=== PATIENT | male | born 1940 | race Caucasian/White ===

== ENCOUNTER 2017-03-10 12:30 | Emergency (ER) | payer MEDICARE, OTHER ==
--- NOTE | 2017-03-10 12:45 | EDM.PDOC ---
ED HPI GENERAL MEDICAL PROBLEM - General Chief Complaint: Gastrointestinal Problem Stated Complaint: GI BLEED Time Seen by Provider: 03/10/17 12:30 Source of Information: Reports: Patient, Family ([facility] Van) History Limitations: Reports: Physical Impairment - History of Present Illness INITIAL COMMENTS - FREE TEXT/NARRATIVE: 77 y.o.w.m came from a assisted with the van to the ed due to vomiting several times today. His last vomit was reddish.No diarrhea, no dizziness or lightheadedness, no pain, denies any other acute medical issues. BP 121/73 pulse 86 Pulse ox 95% on RA. Temp 36.4 Onset: Today Onset Date: 03/10/17 Onset Time: 09:00 Duration: Hour(s):, Waxing/Waning Location: Reports: Abdomen Quality: Reports: Ache Severity: Mild Improves with: Reports: Other (not eating) Worsens with: Reports: Eating Context: Reports: Other (vomitted 8 times today. The last vomit had blood in the vomited materia/.) Associated Symptoms: Reports: Nausea/Vomiting - Related Data Allergies Allergy/AdvReac Type Severity Reaction Status Date / Time No Known Allergies Allergy Verified 03/10/17 12:48 Home Meds: Home Meds Bisacodyl 10 mg RECTAL DAILY PRN 03/10/17 [History] Levothyroxine [Synthroid] 50 mcg PO DAILY 03/10/17 [History] Magnesium Hydroxide [Milk of Magnesia] 30 ml PO DAILY PRN 03/10/17 [History] Ondansetron [Zofran ODT] 8 mg PO Q6H PRN #20 tab.dis 03/10/17 [Rx] Pantoprazole Sodium [Protonix] 40 mg PO DAILY #20 tablet.dr 03/10/17 [Rx] Sertraline HCl [Sertraline HCl] 150 mg PO DAILY 03/10/17 [History] Tamsulosin HCl [Tamsulosin HCl] 0.4 mg PO BEDTIME 03/10/17 [History] Triamcinolone Acetonide [Triamcinolone Acetonide 0.1% Crm] 1 applic TOP BID PRN 03/10/17 [History] atorvaSTATin [Lipitor] 10 mg PO BEDTIME 03/10/17 [History] medroxyPROGESTERone Acetate [Depo-Provera] 150 mg IM ASDIRECTED 03/10/17 [ History] ED ROS GENERAL - Review of Systems Review Of Systems: See Below Constitutional: Reports: No Symptoms HEENT: Reports: No Symptoms Respiratory: Reports: No Symptoms Cardiovascular: Reports: No Symptoms Endocrine: Reports: No Symptoms GI/Abdominal: Reports: Nausea, Vomiting : Reports: No Symptoms Musculoskeletal: Reports: No Symptoms Skin: Reports: No Symptoms Neurological: Reports: No Symptoms Psychiatric: Reports: No Symptoms Hematologic/Lymphatic: Reports: No Symptoms Immunologic: Reports: No Symptoms ED EXAM, GI/ABD - Physical Exam Exam: See Below Exam Limited By: Physical Impairment General Appearance: Alert, WD/WN, No Apparent Distress, Obese Eyes: Bilateral: Normal Appearance Ears: Normal External Exam Nose: Normal Inspection Throat/Mouth: Normal Inspection, No Airway Compromise Head: Atraumatic, Normocephalic Neck: Normal Inspection, Supple, Non-Tender Respiratory/Chest: No Respiratory Distress, Lungs Clear, Normal Breath Sounds ( poor insp effort) Cardiovascular: Normal Peripheral Pulses GI/Abdominal Exam: Normal Bowel Sounds, Soft, Non-Tender, No Organomegaly (Male) Exam: Deferred Rectal (Males) Exam: Deferred Back Exam: Normal Inspection, Full Range of Motion Extremities: Normal Inspection, Normal Range of Motion, Non-Tender, No Pedal Edema Neurological: Alert, Oriented, CN II-XII Intact, Normal Cognition, Other (pt is ambulating without help) Psychiatric: Normal Affect, Normal Mood Skin Exam: Warm, Dry, Intact, Normal Color, No Rash Lymphatic: No Adenopathy Course - Vital Signs Text/Narrative:: 77 y.o.w.m came from a assisted with the van to the ed due to vomiting several times today. His last vomit was reddish.No diarrhea, no dizziness or lightheadedness, no pain, denies any other acute medical issues. BP 121/73 pulse 86 Pulse ox 95% on RA. Temp 36.4 PE: Morbid obese with N/V [employer] Labs: CBC. BMP nl INR 1.15 Impression: Gastritis/ poss MW gastritis, Tx: Zofran, Protonix Reexam: Improved, no N/V in this ED Plan: with instructions Last Recorded V/S: Last Vital Signs Temp 37.1 C 03/10/17 13:45 Pulse 82 03/10/17 13:45 Resp 18 03/10/17 13:45 BP 123/73 03/10/17 13:45 Pulse Ox 93 L 03/10/17 13:45 - Orders/Labs/Meds Orders: Active Orders 24 hr Category Date Time Status Peripheral IV Insertion Adult [OM.PC] Routine Oth 03/10/17 12:46 Ordered Labs: Laboratory Tests 03/10/17 03/10/17 03/10/17 Range/Units 13:00 13:00 13:00 WBC 11.2 (4.5-12.0) X10-3/uL RBC 4.71 (4.30-5.75) x10(6)uL Hgb 14.6 (11.5-15.5) g/dL Hct 44.4 (30.0-51.3) % MCV 94.3 (80-96) fL MCH 31.0 (27.7-33.6) pg MCHC 32.9 (32.2-35.4) g/dL RDW 13.9 (11.5-15.5) % Plt Count 281 (125-369) X10(3)uL MPV 7.8 (7.4-10.4) fL Add Manual Diff Yes Neutrophils % (Manual) 94 H (46-82) % Lymphocytes % (Manual) 3 L (13-37) % Monocytes % (Manual) 3 L (4-12) % PT 11.4 H (8.7-11.1) INR 1.13 (0.89-1.13) Sodium 141 (135-145) mmol/L Potassium 3.6 (3.5-5.3) mmol/L Chloride 103 (100-110) mmol/L Carbon Dioxide 30 (21-32) mmol/L BUN 13 (7-18) mg/dL Creatinine 0.8 (0.70-1.30) mg/dL Est Cr Clr Drug Dosing 86.22 mL/min Estimated GFR (MDRD) > 60 (>60) BUN/Creatinine Ratio 16.3 (9-20) Glucose 127 H (80-116) mg/dL Calcium 8.5 L (8.6-10.2) mg/dL Meds: Medications Discontinued Medications Generic Name Dose Route Start Last Admin Trade Name Freq PRN Reason Stop Dose Admin Ondansetron HCl 8 mg 03/10/17 12:47 03/10/17 13:07 Zofran IVPUSH 03/10/17 12:48 8 mg ONETIME ONE Administration Pantoprazole Sodium 80 mg 03/10/17 12:46 03/10/17 13:13 Protonix Iv IVPUSH 03/10/17 12:47 80 mg .BOLUS ONE Administration Sodium Chloride 10 ml 03/10/17 12:46 03/10/17 13:15 Saline Flush FLUSH 10 ml ASDIRECTED PRN Administration Keep Vein Open Departure - Departure Time of Disposition: 13:41 Disposition: Home, Self-Care 01 Condition: Good Clinical Impression: Gastritis Qualifiers: Gastritis type: unspecified gastritis Chronicity: acute Gastritis bleeding: with bleeding Qualified Code(s): K29.01 - Acute gastritis with bleeding - Discharge Information Prescriptions: Ondansetron [Zofran ODT] 8 mg PO Q6H PRN #20 tab.dis PRN Reason: Nausea Pantoprazole Sodium [Protonix] 40 mg PO DAILY #20 tablet.dr Referrals: Arley Estevez MD [Primary Care Provider] - Forms: ED Department Discharge Additional Instructions: Please take the meds as recommended, please f/u, please come back if your symptoms get worse acutely - My Orders Last 24 Hours: My Active Orders 03/10/17 12:46 Peripheral IV Insertion Adult [OM.PC] Routine - Assessment/Plan Last 24 Hours: My Active Orders 03/10/17 12:46 Peripheral IV Insertion Adult [OM.PC] Routine
[2017-03-10] MEDS ORDERED: Pantoprazole 40 MG Vial IVPUSH ONE (12:46)
[2017-03-10] MEDS ORDERED: Ondansetron 4 MG/2 ML SDV IVPUSH ONE (12:47)
[2017-03-10] MEDS: Sodium Chloride 0.9% 10 ML Syringe FLUSH PRN ×3 (13:05→13:15)
== END 2017-03-10 14:00 | disposition home or self-care (01) ==
LOC: FB.ED 12:30
DX: K29.01 Acute gastritis with bleeding (principal); Z79.899 Other long term (current) drug therapy
CPT/HCPCS: 36415; 80048; 85025; 85610; 96374; 96375; 99285; C9113; J2405; J7050; 99284

== ENCOUNTER 2019-05-10 22:27 | Inpatient (IN) | payer MEDICARE, MEDICAID ==
[2019-05-10] MEDS ORDERED: Albuterol/Ipratropium 3.0-0.5 MG/3 ML Neb Soln NEB ONE (22:37)
[2019-05-11] MEDS ORDERED: methylPREDNISolone Sodium Succinate 125 MG/2 ML SDV IVPUSH ONE (00:07)
[2019-05-11] MEDS ORDERED: Levofloxacin/Dextrose 5%-Water 750 MG in Premix Bag 1 BAG IV ONE ×2 (00:07→01:00)
--- NOTE | 2019-05-11 00:13 | EDM.PDOC ---
ED HPI GENERAL MEDICAL PROBLEM - General Chief Complaint: Respiratory Problem Time Seen by Provider: 05/10/19 23:00 - History of Present Illness INITIAL COMMENTS - FREE TEXT/NARRATIVE: c/o sob pt with dx COPD, dementia, DNR/DNI lives in [place], inc'd sob tonight with fever, RR 32% and PO 89% on 2 liters, normally not on O2, not on nebs RR [facility] - Related Data Allergies Allergy/AdvReac Type Severity Reaction Status Date / Time No Known Allergies Allergy Verified 05/10/19 23:41 Home Meds: Home Meds Bisacodyl 10 mg RECTAL DAILY PRN 03/10/17 [History] Levothyroxine [Synthroid] 50 mcg PO DAILY 03/10/17 [History] Magnesium Hydroxide [Milk of Magnesia] 30 ml PO DAILY PRN 03/10/17 [History] Ondansetron [Zofran ODT] 8 mg PO Q6H PRN #20 tab.dis 03/10/17 [Rx] Pantoprazole Sodium [Protonix] 40 mg PO DAILY #20 tablet.dr 03/10/17 [Rx] Sertraline HCl 150 mg PO DAILY 03/10/17 [History] Tamsulosin HCl 0.4 mg PO BEDTIME 03/10/17 [History] Triamcinolone Acetonide [Triamcinolone Acetonide 0.1% Crm] 1 applic TOP BID PRN 03/10/17 [History] atorvaSTATin [Lipitor] 10 mg PO BEDTIME 03/10/17 [History] medroxyPROGESTERone Acetate [Depo-Provera] 150 mg IM ASDIRECTED 03/10/17 [ History] Past Medical History Cardiovascular History: Reports: High Cholesterol Respiratory History: Reports: COPD Neurological History: Reports: Alzheimers Disease Psychiatric History: Reports: Bipolar, Dementia, Depression, Schizophrenia, Other (See Below) Other Psychiatric History: impulse disorder Endocrine/Metabolic History: Reports: Hypothyroidism, Obesity/BMI 30+ - Infectious Disease History Infectious Disease History: Reports: Chicken Pox Social & Family History - Family History Family Medical History: Noncontributory - Tobacco Use Smoking Status *Q: Never Smoker Second Hand Smoke Exposure: No - Caffeine Use Caffeine Use: Reports: Coffee - Recreational Drug Use Recreational Drug Use: No ED ROS GENERAL - Review of Systems Review Of Systems: See Below Constitutional: Reports: Fever HEENT: Reports: No Symptoms Respiratory: Reports: Shortness of Breath Cardiovascular: Reports: No Symptoms Endocrine: Reports: No Symptoms GI/Abdominal: Reports: No Symptoms : Reports: No Symptoms Musculoskeletal: Reports: No Symptoms Skin: Reports: No Symptoms Neurological: Reports: No Symptoms Psychiatric: Reports: No Symptoms Hematologic/Lymphatic: Reports: No Symptoms Immunologic: Reports: No Symptoms ED EXAM, GENERAL - Physical Exam Exam: See Below Exam Limited By: Other (dementia, alert, pleasant, very poor memory however, no dyspnea, no purse lips, no retractions) General Appearance: Alert Nose: Normal Inspection, Normal Mucosa, No Blood Throat/Mouth: Normal Inspection, Normal Lips, Normal Oropharynx, Normal Voice, No Airway Compromise Head: Atraumatic, Normocephalic Neck: Normal Inspection, Supple, Non-Tender, Full Range of Motion. No: Lymphadenopathy (R), Lymphadenopathy (L) Respiratory/Chest: Other (moderate exp wheeze b/l, fair to good AE, sitting comfortably in w/c, nontoxic, good eye contact, normal speech, talks 8-10 word sentences) Cardiovascular: Regular Rate, Rhythm, No Edema, Other (2/6 DARREL at LSB) GI/Abdominal: Soft, Non-Tender, No Distention, No Mass Back Exam: Normal Inspection, Full Range of Motion, NT Extremities: Normal Inspection, Normal Range of Motion, Non-Tender, No Pedal Edema Neurological: Alert, Oriented, CN II-XII Intact, No Motor/Sensory Deficits Psychiatric: Normal Affect, Normal Mood Skin Exam: Warm, Dry, Intact, Normal Color, No Rash Lymphatic: No Adenopathy Course - Vital Signs Last Recorded V/S: Last Vital Signs Temp 37.1 C 05/10/19 22:34 Pulse 111 H 05/10/19 22:34 Resp 18 05/10/19 22:34 BP 144/86 H 05/10/19 22:34 Pulse Ox 94 L 05/10/19 22:34 - Orders/Labs/Meds Orders: Active Orders 24 hr Category Date Time Status Admission Status [Patient Status] [ADT] Routine ADT 05/11/19 00:05 Ordered Cardiac Monitoring [RC] .As Directed Care 05/11/19 00:05 Ordered EKG Documentation Completion [RC] ASDIRECTED Care 05/10/19 22:37 Ordered RT Aerosol Therapy [RC] ASDIRECTED Care 05/10/19 22:38 Ordered Chest 2V [CR] Stat Exams 05/10/19 22:37 Ordered CULTURE BLOOD [BC] Urgent Lab 05/10/19 22:37 Ordered CULTURE BLOOD [BC] Urgent Lab 05/10/19 22:37 Ordered UA W/MICROSCOPIC [URIN] Stat Lab 05/10/19 22:37 Ordered Levofloxacin/Dextrose 5%-Water [Levaquin in D5W 750 MG/ Med 05/11/19 00:07 Ordered 150 ML] 750 mg Premix Bag 1 bag IV ONETIME methylPREDNISolone Sod Succ [Solu-MEDROL] Med 05/11/19 00:07 Once 125 mg IVPUSH ONETIME ONE Blood Culture x2 Reflex Set [OM.PC] Urgent Oth 05/10/19 22:37 Ordered EKG 12 Lead [EK] Routine Ther 05/10/19 22:37 Ordered Labs: Laboratory Tests 05/10/19 05/10/19 05/10/19 Range/Units 22:55 22:55 22:55 WBC 8.4 (4.5-12.0) X10-3/uL RBC 4.39 (4.30-5.75) x10(6)uL Hgb 14.6 (13.5-17.8) g/dL Hct 43.2 (30.0-51.3) % MCV 98.4 H (80-96) fL MCH 33.2 (27.7-33.6) pg MCHC 33.7 (32.2-35.4) g/dL RDW 13.6 (11.5-15.5) % Plt Count 270 (125-369) X10(3)uL MPV 7.2 L (7.4-10.4) fL Neut % (Auto) 79.9 (46-82) % Lymph % (Auto) 8.9 L (13-37) % Mcpherson % (Auto) 10.5 (4-12) % Eos % (Auto) 0 L (1.0-5.0) % Baso % (Auto) 0 (0-2) % Neut # (Auto) 6.7 (1.6-8.3) # Lymph # (Auto) 0.8 (0.6-5.0) # Mcpherson # (Auto) 0.9 (0.0-1.3) # Eos # (Auto) 0.0 (0.0-0.8) # Baso # (Auto) 0.0 (0.0-0.2) # Sodium 141 (135-145) mmol/L Potassium 3.9 (3.5-5.3) mmol/L Chloride 105 (100-110) mmol/L Carbon Dioxide 26 (21-32) mmol/L BUN 12 (7-18) mg/dL Creatinine 0.9 (0.70-1.30) mg/dL Est Cr Clr Drug Dosing TNP Estimated GFR (MDRD) > 60 (>60) BUN/Creatinine Ratio 13.3 (9-20) Glucose 111 (80-116) mg/dL Lactic Acid (0.4-2.0) mmol/L Calcium 8.5 L (8.6-10.2) mg/dL Total Bilirubin 0.4 (0.1-1.3) mg/dL AST 24 (5-25) IU/L ALT 39 H (12-36) U/L Alkaline Phosphatase 78 (56-112) IU/L Troponin I 18.5 (4.0-60.3) pg/mL Total Protein 7.7 (6.0-8.0) g/dL Albumin 3.1 L (3.2-4.6) g/dL Globulin 4.6 g/dL Albumin/Globulin Ratio 0.7 /03/30 Range/Units 22:55 WBC (4.5-12.0) X10-3/uL RBC (4.30-5.75) x10(6)uL Hgb (13.5-17.8) g/dL Hct (30.0-51.3) % MCV (80-96) fL MCH (27.7-33.6) pg MCHC (32.2-35.4) g/dL RDW (11.5-15.5) % Plt Count (125-369) X10(3)uL MPV (7.4-10.4) fL Neut % (Auto) (46-82) % Lymph % (Auto) (13-37) % Mcpherson % (Auto) (4-12) % Eos % (Auto) (1.0-5.0) % Baso % (Auto) (0-2) % Neut # (Auto) (1.6-8.3) # Lymph # (Auto) (0.6-5.0) # Mcpherson # (Auto) (0.0-1.3) # Eos # (Auto) (0.0-0.8) # Baso # (Auto) (0.0-0.2) # Sodium (135-145) mmol/L Potassium (3.5-5.3) mmol/L Chloride (100-110) mmol/L Carbon Dioxide (21-32) mmol/L BUN (7-18) mg/dL Creatinine (0.70-1.30) mg/dL Est Cr Clr Drug Dosing Estimated GFR (MDRD) (>60) BUN/Creatinine Ratio (9-20) Glucose (80-116) mg/dL Lactic Acid 1.0 (0.4-2.0) mmol/L Calcium (8.6-10.2) mg/dL Total Bilirubin (0.1-1.3) mg/dL AST (5-25) IU/L ALT (12-36) U/L Alkaline Phosphatase (56-112) IU/L Troponin I (4.0-60.3) pg/mL Total Protein (6.0-8.0) g/dL Albumin (3.2-4.6) g/dL Globulin g/dL Albumin/Globulin Ratio Meds: Medications Discontinued Medications Generic Name Dose Route Start Last Admin Trade Name Freq PRN Reason Stop Dose Admin Albuterol/Ipratropium 3 ml 05/10/19 22:37 05/10/19 23:30 Duoneb 3.0-0.5 Mg/3 Ml NEB 05/10/19 22:38 3 ml ONETIME ONE Administration - Re-Assessments/Exams Free Text/Narrative Re-Assessment/Exam: 05/11/19 00:08 labs reviewed CxR 2v with some prominence to vascular to RLL, no comparison, no definite infiltate has fever, yet no inc'd WBC Departure - Departure Time of Disposition: 00:12 Disposition: Admitted As Inpatient 67 Condition: Fair Clinical Impression: COPD exacerbation - Discharge Information *PRESCRIPTION DRUG MONITORING PROGRAM REVIEWED*: Not Applicable *COPY OF PRESCRIPTION DRUG MONITORING REPORT IN PATIENT MARIAH: Not Applicable Sepsis Event Note - Evaluation Sepsis Screening Result: No Definite Risk - Focused Exam Vital Signs: Vital Signs Temp Pulse Resp BP Pulse Ox 05/10/19 22:34 37.1 C 111 H 18 144/86 H 94 L Date Exam was Performed: 05/11/19 Time Exam was Performed: 00:08 - My Orders Last 24 Hours: My Active Orders 05/10/19 22:37 EKG Documentation Completion [RC] ASDIRECTED Chest 2V [CR] Stat CULTURE BLOOD [BC] Urgent CULTURE BLOOD [BC] Urgent UA W/MICROSCOPIC [URIN] Stat Blood Culture x2 Reflex Set [OM.PC] Urgent EKG 12 Lead [EK] Routine 05/10/19 22:38 RT Aerosol Therapy [RC] ASDIRECTED 05/11/19 00:05 Admission Status [Patient Status] [ADT] Routine Cardiac Monitoring [RC] .As Directed 05/11/19 00:07 Levofloxacin/Dextrose 5%-Water [Levaquin in D5W 750 MG/150 ML] 750 mg Premix Bag 1 bag IV ONETIME methylPREDNISolone Sod Succ [Solu-MEDROL] 125 mg IVPUSH ONETIME ONE - Assessment/Plan Last 24 Hours: My Active Orders 05/10/19 22:37 EKG Documentation Completion [RC] ASDIRECTED Chest 2V [CR] Stat CULTURE BLOOD [BC] Urgent CULTURE BLOOD [BC] Urgent UA W/MICROSCOPIC [URIN] Stat Blood Culture x2 Reflex Set [OM.PC] Urgent EKG 12 Lead [EK] Routine 05/10/19 22:38 RT Aerosol Therapy [RC] ASDIRECTED 05/11/19 00:05 Admission Status [Patient Status] [ADT] Routine Cardiac Monitoring [RC] .As Directed 05/11/19 00:07 Levofloxacin/Dextrose 5%-Water [Levaquin in D5W 750 MG/150 ML] 750 mg Premix Bag 1 bag IV ONETIME methylPREDNISolone Sod Succ [Solu-MEDROL] 125 mg IVPUSH ONETIME ONE
[2019-05-11] MEDS ORDERED: Acetaminophen 325 MG Tab PO PRN ×2 (00:36→03:03)
[2019-05-11] MEDS ORDERED: Ondansetron 4 MG/2 ML SDV IV PRN (00:36)
[2019-05-11] MEDS ORDERED: Magnesium Hydroxide 400 MG/5 ML Susp 30 ML Cup PO PRN (03:03)
[2019-05-11] MEDS ORDERED: Bisacodyl 10 MG Supp RECTAL PRN (03:03)
[2019-05-11] MEDS: Albuterol/Ipratropium 3.0-0.5 MG/3 ML Neb Soln NEB SCH ×4 (06:25→20:26)
[2019-05-11] MEDS ORDERED: Levothyroxine 50 MCG Tab PO SCH (07:30)
[2019-05-11] MEDS ORDERED: Levothyroxine 100 MCG Tab PO SCH (07:45)
[2019-05-11] MEDS ORDERED: buPROPion 150 MG Tab.SR PO SCH (09:00)
--- NOTE | 2019-05-11 09:07 | PCM.HP.2 ---
H&P History of Present Illness - General Date of Service: 05/11/19 Admit Problem/Dx: Admission Diagnosis/Problem Admission Diagnosis/Problem COPD, Moderate chronic obstructive pulmonary disease Source of Information: Patient, EMS Notes Reviewed, Longterm Records, Old Records History Limitations: Reports: Altered Mental Status - History of Present Illness Initial Comments - Free Text/Narative: Corbin came into the ED with 3-4 days of cough,wheezing and SOB. Denies any fever. He apparently has a h/o COPD.He is from [facility] .He has a h/o Dementia,Hypothyroidism and MDD - Related Data Allergies/Adverse Reactions: Allergies Allergy/AdvReac Type Severity Reaction Status Date / Time No Known Allergies Allergy Verified 05/10/19 23:41 Home Medications: Home Meds Bisacodyl 10 mg RECTAL DAILY PRN 03/10/17 [History] Levothyroxine [Synthroid] 100 mcg PO MOFR@0600 03/10/17 [History] Magnesium Hydroxide [Milk of Magnesia] 30 ml PO DAILY PRN 03/10/17 [History] Ondansetron [Zofran ODT] 8 mg PO Q6H PRN #20 tab.dis 03/10/17 [Rx] Tamsulosin HCl 0.4 mg PO BEDTIME 03/10/17 [History] Triamcinolone Acetonide [Triamcinolone Acetonide 0.1% Crm] 1 applic TOP BID PRN 03/10/17 [History] medroxyPROGESTERone Acetate [Depo-Provera] 150 mg IM ASDIRECTED 03/10/17 [ History] Acetaminophen [Tylenol] 650 mg PO Q4HR PRN 05/11/19 [History] Levothyroxine [Synthroid] 50 mcg PO SUTUWETHSA@0600 05/11/19 [History] Loperamide [Imodium AD] 2 mg PO ASDIRECTED PRN 05/11/19 [History] Mirtazapine [Remeron] 7.5 mg PO BEDTIME 05/11/19 [History] atorvaSTATin [Lipitor] 10 mg PO BEDTIME 05/11/19 [History] buPROPion HCL [Bupropion Xl] 300 mg PO DAILY 05/11/19 [History] Past Medical History Cardiovascular History: Reports: High Cholesterol Respiratory History: Reports: COPD Neurological History: Reports: Alzheimers Disease Psychiatric History: Reports: Bipolar, Dementia, Depression, Schizophrenia, Other (See Below) Other Psychiatric History: impulse disorder Endocrine/Metabolic History: Reports: Hypothyroidism, Obesity/BMI 30+ - Infectious Disease History Infectious Disease History: Reports: Chicken Pox Social & Family History - Family History Family Medical History: Noncontributory - Tobacco Use Smoking Status *Q: Never Smoker Second Hand Smoke Exposure: No - Caffeine Use Caffeine Use: Reports: Coffee - Recreational Drug Use Recreational Drug Use: No H&P Review of Systems - Review of Systems: Review Of Systems: Comprehensive ROS is negative, except as noted in HPI. ( Dementia) Exam - Exam Exam: See Below - Vital Signs Vital Signs: Last Vital Signs Temp 98.7 F 05/11/19 01:00 Pulse 98 05/11/19 01:00 Resp 22 H 05/11/19 01:00 BP 130/74 05/11/19 01:00 Pulse Ox 96 05/11/19 01:00 Weight: 120.021 kg - Exam Quality Assessment: Supplemental Oxygen General: Alert, Mild Distress HEENT: PERRLA Lungs: Rales, Rhonchi Cardiovascular: Regular Rate GI/Abdominal Exam: Normal Bowel Sounds, Soft (Male) Exam: Deferred Rectal (Males) Exam: Deferred Back Exam: Normal Inspection Extremities: Pedal Edema Skin: Warm Neurological: Cranial Nerves Intact Neuro Extensive - Mental Status: Alert. No: Oriented x3 Neuro Extensive - Motor, Sensory, Reflexes: CN II-XII Intact Psychiatric: Alert, Depressed - Patient Data Lab Results Last 24 hrs: Laboratory Results - last 24 hr 05/10/19 05/10/19 05/10/19 Range/Units 22:55 22:55 22:55 WBC 8.4 (4.5-12.0) X10-3/uL RBC 4.39 (4.30-5.75) x10(6)uL Hgb 14.6 (13.5-17.8) g/dL Hct 43.2 (30.0-51.3) % MCV 98.4 H (80-96) fL MCH 33.2 (27.7-33.6) pg MCHC 33.7 (32.2-35.4) g/dL RDW 13.6 (11.5-15.5) % Plt Count 270 (125-369) X10(3)uL MPV 7.2 L (7.4-10.4) fL Neut % (Auto) 79.9 (46-82) % Lymph % (Auto) 8.9 L (13-37) % Valley % (Auto) 10.5 (4-12) % Eos % (Auto) 0 L (1.0-5.0) % Baso % (Auto) 0 (0-2) % Neut # (Auto) 6.7 (1.6-8.3) # Lymph # (Auto) 0.8 (0.6-5.0) # Valley # (Auto) 0.9 (0.0-1.3) # Eos # (Auto) 0.0 (0.0-0.8) # Baso # (Auto) 0.0 (0.0-0.2) # Sodium 141 (135-145) mmol/L Potassium 3.9 (3.5-5.3) mmol/L Chloride 105 (100-110) mmol/L Carbon Dioxide 26 (21-32) mmol/L BUN 12 (7-18) mg/dL Creatinine 0.9 (0.70-1.30) mg/dL Est Cr Clr Drug Dosing TNP Estimated GFR (MDRD) > 60 (>60) BUN/Creatinine Ratio 13.3 (9-20) Glucose 111 (80-116) mg/dL Lactic Acid (0.4-2.0) mmol/L Calcium 8.5 L (8.6-10.2) mg/dL Total Bilirubin 0.4 (0.1-1.3) mg/dL AST 24 (5-25) IU/L ALT 39 H (12-36) U/L Alkaline Phosphatase 78 (56-112) IU/L Troponin I 18.5 (4.0-60.3) pg/mL Total Protein 7.7 (6.0-8.0) g/dL Albumin 3.1 L (3.2-4.6) g/dL Globulin 4.6 g/dL Albumin/Globulin Ratio 0.7 Urine Color (YELLOW) Urine Appearance (CLEAR) Urine pH (5.0-6.5) Ur Specific [place] (1.010-1.025) Urine Protein (NEGATIVE) mg/dL Urine Glucose (UA) (NORMAL) mg/dL Urine Ketones (NEGATIVE) mg/dL Urine Occult Blood (NEGATIVE) Urine Nitrite (NEGATIVE) Urine Bilirubin (NEGATIVE) Urine Urobilinogen (NEGATIVE) mg/dL Ur Leukocyte Esterase (NEGATIVE) Urine RBC (0-5) Urine WBC (0-5) Ur Squamous Epith Cells (NS,R,O) Urine Bacteria (NS) 05/10/19 05/11/19 Range/Units 22:55 01:00 WBC (4.5-12.0) X10-3/uL RBC (4.30-5.75) x10(6)uL Hgb (13.5-17.8) g/dL Hct (30.0-51.3) % MCV (80-96) fL MCH (27.7-33.6) pg MCHC (32.2-35.4) g/dL RDW (11.5-15.5) % Plt Count (125-369) X10(3)uL MPV (7.4-10.4) fL Neut % (Auto) (46-82) % Lymph % (Auto) (13-37) % Valley % (Auto) (4-12) % Eos % (Auto) (1.0-5.0) % Baso % (Auto) (0-2) % Neut # (Auto) (1.6-8.3) # Lymph # (Auto) (0.6-5.0) # Valley # (Auto) (0.0-1.3) # Eos # (Auto) (0.0-0.8) # Baso # (Auto) (0.0-0.2) # Sodium (135-145) mmol/L Potassium (3.5-5.3) mmol/L Chloride (100-110) mmol/L Carbon Dioxide (21-32) mmol/L BUN (7-18) mg/dL Creatinine (0.70-1.30) mg/dL Est Cr Clr Drug Dosing Estimated GFR (MDRD) (>60) BUN/Creatinine Ratio (9-20) Glucose (80-116) mg/dL Lactic Acid 1.0 (0.4-2.0) mmol/L Calcium (8.6-10.2) mg/dL Total Bilirubin (0.1-1.3) mg/dL AST (5-25) IU/L ALT (12-36) U/L Alkaline Phosphatase (56-112) IU/L Troponin I (4.0-60.3) pg/mL Total Protein (6.0-8.0) g/dL Albumin (3.2-4.6) g/dL Globulin g/dL Albumin/Globulin Ratio Urine Color Yellow (YELLOW) Urine Appearance Slightly cloudy (CLEAR) Urine pH 5.0 (5.0-6.5) Ur Specific [place] 1.030 H (1.010-1.025) Urine Protein Negative (NEGATIVE) mg/dL Urine Glucose (UA) Normal (NORMAL) mg/dL Urine Ketones Negative (NEGATIVE) mg/dL Urine Occult Blood Negative (NEGATIVE) Urine Nitrite Negative (NEGATIVE) Urine Bilirubin Negative (NEGATIVE) Urine Urobilinogen Normal (NEGATIVE) mg/dL Ur Leukocyte Esterase Negative (NEGATIVE) Urine RBC 0-5 (0-5) Urine WBC 0-5 (0-5) Ur Squamous Epith Cells Occasional (NS,R,O) Urine Bacteria Few H (NS) Result Diagrams: 05/10/19 22:55 05/10/19 22:55 Victorino Results Last 24 hrs: Microbiology 05/10/19 22:49 Influenza Type A Antigen Screen - Final Nasal, Unspecified NEGATIVE INFLUENZA A VIRUS AG REFERENCE RANGE: NEGATIVE Influenza Type B Antigen Screen - Final NEGATIVE INFLUENZA B VIRUS AG REFERENCE RANGE: NEGATIVE EKG INTERPRETATION Rhythm: NSR Sepsis Event Note - Evaluation Sepsis Screening Result: No Definite Risk - Focused Exam Vital Signs: Vital Signs Temp Pulse Resp BP Pulse Ox Pulse Ox 05/11/19 01:00 98.7 F 98 22 H 130/74 96 05/11/19 00:37 96 05/10/19 23:45 98.4 F 100 20 138/72 96 05/10/19 23:40 96 05/10/19 22:34 98.8 F 111 H 18 144/86 H 94 L Date Exam was Performed: 05/11/19 Time Exam was Performed: 16:01 - Problem List (1) COPD exacerbation SNOMED Code(s): 314760716 ICD Code: J44.1 - CHRONIC OBSTRUCTIVE PULMONARY DISEASE W (ACUTE) EXACERBATION Status: Acute Current Visit: No (2) Dementia SNOMED Code(s): 16414930 ICD Code: F03.90 - UNSPECIFIED DEMENTIA WITHOUT BEHAVIORAL DISTURBANCE Status: Acute Current Visit: Yes Qualifiers: Dementia type: Alzheimer's disease Problem List Initiated/Reviewed/Updated: Yes Orders Last 24hrs: Active Orders 24 hr Category Date Time Status Admission Status [Patient Status] [ADT] Routine ADT 05/11/19 00:05 Active Cardiac Monitoring [RC] .As Directed Care 05/11/19 00:05 Active Cardiac Monitoring [RC] CONTINUOUS Care 05/11/19 00:37 Active EKG Documentation Completion [RC] ASDIRECTED Care 05/10/19 22:37 Active Oxygen Therapy [RC] PRN Care 05/11/19 00:37 Active RT Aerosol Therapy [RC] ASDIRECTED Care 05/10/19 22:38 Active Up With Assistance [RC] ASDIRECTED Care 05/11/19 00:36 Active Up to Chair [RC] ASDIRECTED Care 05/11/19 00:36 Active VTE/DVT Education [RC] Per Unit Routine Care 05/11/19 00:37 Active Vital Signs [RC] Q4H Care 05/11/19 00:37 Active 2 Gram Sodium Diet [DIET] Diet 05/11/19 Breakfast Active Chest 2V [CR] Stat Exams 05/10/19 22:37 Taken BASIC METABOLIC PANEL,BMP [CHEM] Routine Lab 05/12/19 06:00 Ordered CBC WITH AUTO DIFF [HEME] Routine Lab 05/12/19 06:00 Ordered CULTURE BLOOD [BC] Urgent Lab 05/10/19 22:55 Received CULTURE BLOOD [BC] Urgent Lab 05/10/19 23:00 Received Acetaminophen [Tylenol] Med 05/11/19 00:36 Active 650 mg PO Q4H PRN Acetaminophen [Tylenol] Med 05/11/19 03:03 Active 650 mg PO Q4H PRN Albuterol/Ipratropium [DuoNeb 3.0-0.5 MG/3 ML] Med 05/11/19 07:00 Active 3 ml NEB QIDRT Levofloxacin/Dextrose 5%-Water [Levaquin in D5W 750 MG/ Med 05/11/19 21:00 Active 150 ML] 750 mg Premix Bag 1 bag IV Q24H Levothyroxine [Synthroid] Med 05/11/19 07:45 Active 100 mcg PO MoFr@0600 Levothyroxine [Synthroid] Med 05/12/19 06:00 Active 50 mcg PO SuTuWeThSa@0600 Magnesium Hydroxide [Milk of Magnesia] Med 05/11/19 03:03 Active 30 ml PO DAILY PRN Mirtazapine [Remeron] Med 05/11/19 21:00 Active 7.5 mg PO BEDTIME Ondansetron [Zofran] Med 05/11/19 00:36 Active 4 mg IV Q4H PRN Sodium Chloride 0.9% [Saline Flush] Med 05/11/19 00:36 Active 10 ml FLUSH ASDIRECTED PRN Tamsulosin [Flomax] Med 05/11/19 21:00 Active 0.4 mg PO BEDTIME atorvaSTATin [Lipitor] Med 05/11/19 21:00 Active 10 mg PO BEDTIME bisacodyL [Dulcolax] Med 05/11/19 03:03 Active 10 mg RECTAL DAILY PRN buPROPion [Wellbutrin XL] Med 05/11/19 09:00 Active 300 mg PO DAILY medroxyPROGESTERone Acetate [Depo-Provera] Med 05/23/19 09:00 Pending 150 mg IM ASDIRECTED methylPREDNISolone Sod Succ [Solu-MEDROL] Med 05/11/19 08:00 Active 125 mg IVPUSH Q8H Blood Culture x2 Reflex Set [OM.PC] Urgent Oth 05/10/19 22:37 Ordered Saline Lock Insert [OM.PC] Routine Oth 05/11/19 00:36 Ordered Resuscitation Status Routine Resus Stat 05/11/19 00:36 Ordered EKG 12 Lead [EK] Routine Ther 05/10/19 22:37 Ordered Medication Orders Acetaminophen (Tylenol) 650 mg PO Q4H PRN PRN Reason: Pain (Mild 1-3)/fever Acetaminophen (Tylenol) 650 mg PO Q4H PRN PRN Reason: Pain Albuterol/Ipratropium (Duoneb 3.0-0.5 Mg/3 Ml) 3 ml NEB QIDRT [facility] Last Admin: 05/11/19 06:25 Dose: 3 ml Atorvastatin Calcium (Lipitor) 10 mg PO BEDTIME [facility] Bisacodyl (Dulcolax) 10 mg RECTAL DAILY PRN PRN Reason: Constipation Bupropion HCl (Wellbutrin Xl) 300 mg PO DAILY [facility] Levofloxacin/Dextrose 750 mg/ (Premix) 150 mls @ 100 mls/hr IV Q24H [facility] Stop: 05/17/19 21:01 Levothyroxine Sodium (Synthroid) 100 mcg PO MoFr@0600 [facility] Last Admin: 05/11/19 08:02 Dose: 100 mcg Levothyroxine Sodium (Synthroid) 50 mcg PO SuTuWeThSa@0600 [facility] Magnesium Hydroxide (Milk Of Magnesia) 30 ml PO DAILY PRN PRN Reason: Constipation Methylprednisolone Sodium Succinate (Solu-Medrol) 125 mg IVPUSH Q8H [facility] Mirtazapine (Remeron) 7.5 mg PO BEDTIME [facility] Non-Formulary Medication (Medroxyprogesterone Acetate [Depo-Provera]) 150 mg IM ASDIRECTED [facility] Ondansetron HCl (Zofran) 4 mg IV Q4H PRN PRN Reason: Nausea/Vomiting Sodium Chloride (Saline Flush) 10 ml FLUSH ASDIRECTED PRN PRN Reason: Keep Vein Open Tamsulosin HCl (Flomax) 0.4 mg PO BEDTIME [facility] Assessment/Plan Comment:: Admit.No pneumonia on my exam of X ray. We will wait for official report.DC abx. Agree with Solumedrol and SVNS. Add Lasix.Obtain ECHO tomorrow. Repeat Labs
[2019-05-11] MEDS: methylPREDNISolone Sodium Succinate 125 MG/2 ML SDV IVPUSH SCH ×2 (09:08→15:26)
[2019-05-11] MEDS: Sodium Chloride 0.9% 10 ML Syringe FLUSH PRN ×4 (09:10→15:27)
[2019-05-11] MEDS: buPROPion 150 MG Tab.ER PO SCH (09:13)
[2019-05-11] MEDS: Furosemide 20 MG/2 ML VIAL IVPUSH SCH ×2 (10:07→13:59)
--- NOTE | 2019-05-11 11:34 | CR ---
INDICATION: Short of breath. CHEST, TWO VIEWS: Two AP views and a lateral view of the chest were obtained . The lateral view is limited in that the posterior sulci were not visualized, especially the right. The heart showed evidence of left ventricular enlargement but was not grossly enlarged. Pulmonary vasculature in the upper lung morales appears somewhat prominent raising question of pulmonary vascular congestion or possibly CHF in a patient with an acute myocardial event - correlate clinically. A definite active infiltrate or effusion was not identified. A degree of COPD is suggested with somewhat flattened diaphragm leaves, prominent AP diameter and eventration of the right hemidiaphragm leaf and hyperaeration. In the left mid lung field, there is a relative decrease in density raising question of a large bleb in that area. Relatively sparse soft tissue in that area could also be present in that area producing this effect which should be correlated clinically. The effect may simple be on the basis of skin folds in this patient. A definite consolidating pneumonia or effusion was not seen. However, heavy markings are noted at the lung bases making it difficult to entirely exclude minimal patchy bronchopneumonia. The aorta is somewhat tortuous with minimal calcification suggested in the arch. Degenerative changes are noted anteriorly bridging vertebral bodies with a somewhat flowing appearance raising question of early DISH. IMPRESSION: 1. 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 2. No definite acute process but difficult to exclude minimal patchy bronchopneumonia at the lung bases due to somewhat heavy markings. 3. Probable COPD - correlate clinically. 4. Possible early DISH. MTDD
[2019-05-11] MEDS ORDERED: Perflutren Lipid Microspheres 2.2 MG/2 ML SDV IVPUSH ONE (12:43)
[2019-05-11] MEDS: Tamsulosin 0.4 MG Cap.ER PO SCH (20:26)
[2019-05-11] MEDS: Mirtazapine 15 MG Tab PO SCH (20:27)
[2019-05-11] MEDS: atorvaSTATin 10 MG Tab PO SCH (20:27)
[2019-05-11] MEDS ORDERED: Levofloxacin/Dextrose 5%-Water 750 MG in Premix Bag 1 BAG IV SCH (21:00)
[2019-05-12] MEDS: methylPREDNISolone Sodium Succinate 125 MG/2 ML SDV IVPUSH SCH ×3 (00:24→15:40)
[2019-05-12] MEDS: Sodium Chloride 0.9% 10 ML Syringe FLUSH PRN ×5 (00:27→22:30)
[2019-05-12] MEDS: Albuterol/Ipratropium 3.0-0.5 MG/3 ML Neb Soln NEB SCH ×4 (06:23→20:19)
[2019-05-12] MEDS: Levothyroxine 50 MCG Tab PO SCH (06:23)
[2019-05-12] MEDS: buPROPion 150 MG Tab.ER PO SCH (08:51)
[2019-05-12] MEDS: Furosemide 20 MG/2 ML VIAL IVPUSH SCH (08:51)
--- NOTE | 2019-05-12 08:56 | PCM.PN ---
- General Info Date of Service: 05/12/19 Subjective Update: Has more cough this morning.Denies fever. No chest pain. Oxygen down to 1L Functional Status: Reports: Pain Controlled - Review of Systems General: Reports: No Symptoms HEENT: Reports: No Symptoms Pulmonary: Reports: Cough, Sputum Gastrointestinal: Reports: No Symptoms - Patient Data Vitals - Most Recent: Last Vital Signs Temp 97.1 F 05/12/19 05:23 Pulse 90 05/12/19 05:23 Resp 16 05/12/19 05:23 BP 114/69 05/12/19 05:23 Pulse Ox 92 L 05/12/19 05:23 Weight - Most Recent: 120.021 kg Lab Results Last 24 Hours: Laboratory Results - last 24 hr 05/11/19 05/12/19 05/12/19 Range/Units 09:25 06:25 06:25 WBC 15.6 H (4.5-12.0) X10-3/uL RBC 4.27 L (4.30-5.75) x10(6)uL Hgb 13.9 (13.5-17.8) g/dL Hct 42.2 (30.0-51.3) % MCV 98.9 H (80-96) fL MCH 32.6 (27.7-33.6) pg MCHC 32.9 (32.2-35.4) g/dL RDW 13.3 (11.5-15.5) % Plt Count 271 (125-369) X10(3)uL MPV 7.4 (7.4-10.4) fL Add Manual Diff Yes Neutrophils % (Manual) 86 H (46-82) % Band Neutrophils % 6 (0-6) % Lymphocytes % (Manual) 6 L (13-37) % Monocytes % (Manual) 2 L (4-12) % Sodium 142 (135-145) mmol/L Potassium 3.5 (3.5-5.3) mmol/L Chloride 106 (100-110) mmol/L Carbon Dioxide 29 (21-32) mmol/L BUN 18 (7-18) mg/dL Creatinine 1.1 (0.70-1.30) mg/dL Est Cr Clr Drug Dosing 60.75 mL/min Estimated GFR (MDRD) > 60 (>60) BUN/Creatinine Ratio 16.4 (9-20) Glucose 154 H (80-116) mg/dL Calcium 8.3 L (8.6-10.2) mg/dL NT-Pro-B Natriuret Pep 472 H (<=450) pg/mL Victorino Results Last 24 Hours: Microbiology 05/10/19 22:55 Aerobic Blood Culture - Preliminary Blood - Venous NO GROWTH AFTER 1 DAY Anaerobic Blood Culture - Preliminary NO GROWTH AFTER 1 DAY 05/10/19 23:00 Aerobic Blood Culture - Preliminary Blood - Venous - Lab Draw NO GROWTH AFTER 1 DAY Anaerobic Blood Culture - Preliminary NO GROWTH AFTER 1 DAY Med Orders - Current: Current Medications Acetaminophen (Tylenol) 650 mg PO Q4H PRN PRN Reason: Pain (Mild 1-3)/fever Acetaminophen (Tylenol) 650 mg PO Q4H PRN PRN Reason: Pain Albuterol/Ipratropium (Duoneb 3.0-0.5 Mg/3 Ml) 3 ml NEB QIDRT [facility] Last Admin: 05/12/19 06:23 Dose: 3 ml Atorvastatin Calcium (Lipitor) 10 mg PO BEDTIME [facility] Last Admin: 05/11/19 20:27 Dose: 10 mg Bisacodyl (Dulcolax) 10 mg RECTAL DAILY PRN PRN Reason: Constipation Bupropion HCl (Wellbutrin Xl) 300 mg PO DAILY [facility] Last Admin: 05/12/19 08:51 Dose: 300 mg Levothyroxine Sodium (Synthroid) 100 mcg PO MoFr@0600 [facility] Last Admin: 05/11/19 08:02 Dose: 100 mcg Levothyroxine Sodium (Synthroid) 50 mcg PO SuTuWeThSa@0600 [facility] Last Admin: 05/12/19 06:23 Dose: 50 mcg Magnesium Hydroxide (Milk Of Magnesia) 30 ml PO DAILY PRN PRN Reason: Constipation Methylprednisolone Sodium Succinate (Solu-Medrol) 125 mg IVPUSH Q8H [facility] Last Admin: 05/12/19 08:51 Dose: 125 mg Mirtazapine (Remeron) 7.5 mg PO BEDTIME [facility] Last Admin: 05/11/19 20:27 Dose: 7.5 mg Non-Formulary Medication (Medroxyprogesterone Acetate [Depo-Provera]) 150 mg IM ASDIRECTED [facility] Ondansetron HCl (Zofran) 4 mg IV Q4H PRN PRN Reason: Nausea/Vomiting Sodium Chloride (Saline Flush) 10 ml FLUSH ASDIRECTED PRN PRN Reason: Keep Vein Open Last Admin: 05/12/19 00:27 Dose: 10 ml Tamsulosin HCl (Flomax) 0.4 mg PO BEDTIME [facility] Last Admin: 05/11/19 20:26 Dose: 0.4 mg Discontinued Medications Albuterol/Ipratropium (Duoneb 3.0-0.5 Mg/3 Ml) 3 ml NEB ONETIME ONE Stop: 05/10/19 22:38 Last Admin: 05/10/19 23:30 Dose: 3 ml Bupropion HCl (Wellbutrin Sr) 300 mg PO DAILY [facility] Furosemide (Lasix) 20 mg IVPUSH BIDDIURETIC [facility] Last Admin: 05/12/19 08:51 Dose: 20 mg Levofloxacin/Dextrose 750 mg/ (Premix) 150 mls @ 100 mls/hr IV ONETIME ONE Stop: 05/11/19 01:36 Last Admin: 05/11/19 01:27 Dose: Not Given Levofloxacin/Dextrose 750 mg/ (Premix) 150 mls @ 100 mls/hr IV Q24H [facility] Stop: 05/17/19 21:01 Levofloxacin/Dextrose 750 mg/ (Premix) 150 mls @ 100 mls/hr IV ONETIME ONE Stop: 05/11/19 02:29 Last Admin: 05/11/19 01:27 Dose: 100 mls/hr Methylprednisolone Sodium Succinate (Solu-Medrol) 125 mg IVPUSH ONETIME ONE Stop: 05/11/19 00:08 Last Admin: 05/11/19 01:27 Dose: 125 mg Perflutren Lipid Microsphere (Definity) 2.2 mg IVPUSH PREPRO ONE Stop: 05/11/19 12:44 Last Admin: 05/11/19 13:54 Dose: 2.2 mg - Exam Quality Assessment: Supplemental Oxygen General: Alert, Oriented HEENT: Pupils Equal Neck: Supple Lungs: Crackles Cardiovascular: Regular Rate Skin: Warm Sepsis Event Note - Evaluation Sepsis Screening Result: No Definite Risk - Focused Exam Vital Signs: Vital Signs Temp Pulse Resp BP Pulse Ox 05/12/19 05:23 97.1 F 90 16 114/69 92 L 05/12/19 00:00 97.7 F 95 16 113/65 90 L 05/11/19 21:00 97.4 F 94 18 139/74 98 Date Exam was Performed: 05/12/19 Time Exam was Performed: 09:14 - Problem List & Annotations (1) COPD exacerbation SNOMED Code(s): 594047399 Code(s): J44.1 - CHRONIC OBSTRUCTIVE PULMONARY DISEASE W (ACUTE) EXACERBATION Status: Acute Current Visit: No (2) Dementia SNOMED Code(s): 88271409 Code(s): F03.90 - UNSPECIFIED DEMENTIA WITHOUT BEHAVIORAL DISTURBANCE Status: Acute Current Visit: Yes Qualifiers: Dementia type: Alzheimer's disease - Problem List Review Problem List Initiated/Reviewed/Updated: Yes - My Orders Last 24 Hours: My Active Orders 05/11/19 13:33 Echo Comp wo Cont [US] 05/13/19 05:11 BASIC METABOLIC PANEL,BMP [CHEM] AM CBC WITH AUTO DIFF [HEME] AM - Plan Plan:: Will repeat labs and CXR.DC Lasix( Echo was normal.)Continue O2
--- NOTE | 2019-05-12 10:50 | CR ---
INDICATION: Cough. CHEST, TWO VIEWS: Three PA views and a lateral view of the chest were obtained 05/12/2019. Repeated views were obtained due to coughing, and compared with 03/2019. The heart appears to be normal in size. The aorta is somewhat tortuous. Anterior longitudinal ligament calcification is noted which could be on the basis of rheumatoid spondylitis but should be correlated clinically. Findings compatible with COPD are again noted. Heavy markings are noted at the left lung base with minimal blunting of the costophrenic angle raising question of minimal patchy pneumonia and pleuritis in that area. However, no gross consolidating pneumonia was identified. IMPRESSION: 1. Suspect minimal pneumonia and pleuritis at the left lung base. 2. COPD. 3. ASD aorta. 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 MTDD
[2019-05-12] MEDS ORDERED: Aluminum Hydroxide/Magnesium Hydroxide Susp 30 ML Cup PO PRN (16:57)
[2019-05-12] MEDS ORDERED: Ondansetron 4 MG Tab.DIS PO PRN (18:48)
[2019-05-12] MEDS: Mirtazapine 15 MG Tab PO SCH (20:20)
[2019-05-12] MEDS: Tamsulosin 0.4 MG Cap.ER PO SCH (20:20)
[2019-05-12] MEDS: predniSONE 20 MG Tab PO SCH (20:20)
[2019-05-12] MEDS: atorvaSTATin 10 MG Tab PO SCH (20:20)
[2019-05-12] MEDS ORDERED: Sodium Chloride 0.9% 10 ML Syringe FLUSH PRN (21:52)
[2019-05-12] MEDS ORDERED: Pantoprazole 40 MG Vial IVPUSH SCH (22:00)
[2019-05-13] MEDS: Albuterol/Ipratropium 3.0-0.5 MG/3 ML Neb Soln NEB SCH ×5 (05:39→20:05)
[2019-05-13] MEDS: Levothyroxine 50 MCG Tab PO SCH (05:39)
--- NOTE | 2019-05-13 08:36 | PCM.PN ---
- General Info Date of Service: 05/13/19 Subjective Update: Feeling much better today Functional Status: Reports: Pain Controlled - Review of Systems General: Reports: No Symptoms HEENT: Reports: No Symptoms Pulmonary: Reports: Cough Cardiovascular: Reports: No Symptoms Gastrointestinal: Reports: No Symptoms - Patient Data Vitals - Most Recent: Last Vital Signs Temp 98.0 F 05/13/19 07:18 Pulse 91 05/13/19 07:18 Resp 18 05/13/19 07:18 BP 133/78 05/13/19 07:18 Pulse Ox 92 L 05/13/19 07:18 Weight - Most Recent: 120.021 kg Lab Results Last 24 Hours: Laboratory Results - last 24 hr 05/13/19 05/13/19 Range/Units 06:15 06:15 WBC 17.5 H (4.5-12.0) X10-3/uL RBC 4.46 (4.30-5.75) x10(6)uL Hgb 14.8 (13.5-17.8) g/dL Hct 43.6 (30.0-51.3) % MCV 97.8 H (80-96) fL MCH 33.2 (27.7-33.6) pg MCHC 34.0 (32.2-35.4) g/dL RDW 13.4 (11.5-15.5) % Plt Count 290 (125-369) X10(3)uL MPV 7.5 (7.4-10.4) fL Add Manual Diff Yes Neutrophils % (Manual) 86 H (46-82) % Band Neutrophils % 5 (0-6) % Lymphocytes % (Manual) 5 L (13-37) % Monocytes % (Manual) 4 (4-12) % Hypersegmented Neuts Few Toxic Granulation Many H (NOT SEEN) Sodium 143 (135-145) mmol/L Potassium 3.0 L (3.5-5.3) mmol/L Chloride 106 (100-110) mmol/L Carbon Dioxide 30 (21-32) mmol/L BUN 25 H (7-18) mg/dL Creatinine 1.2 (0.70-1.30) mg/dL Est Cr Clr Drug Dosing 55.69 mL/min Estimated GFR (MDRD) 59 L (>60) BUN/Creatinine Ratio 20.8 H (9-20) Glucose 129 H (80-116) mg/dL Calcium 8.3 L (8.6-10.2) mg/dL Victorino Results Last 24 Hours: Microbiology 05/10/19 23:00 Aerobic Blood Culture - Preliminary Blood - Venous - Lab Draw NO GROWTH AFTER 2 DAYS Anaerobic Blood Culture - Preliminary NO GROWTH AFTER 2 DAYS 05/10/19 22:55 Aerobic Blood Culture - Preliminary Blood - Venous NO GROWTH AFTER 2 DAYS Anaerobic Blood Culture - Preliminary NO GROWTH AFTER 2 DAYS Med Orders - Current: Current Medications Acetaminophen (Tylenol) 650 mg PO Q4H PRN PRN Reason: Pain (Mild 1-3)/fever Acetaminophen (Tylenol) 650 mg PO Q4H PRN PRN Reason: Pain Al Hydroxide/Mg Hydroxide (Mag-Al Susp) 30 ml PO Q2H PRN PRN Reason: Indigestion Albuterol/Ipratropium (Duoneb 3.0-0.5 Mg/3 Ml) 3 ml NEB QIDRT [facility] Last Admin: 05/13/19 06:20 Dose: Not Given Atorvastatin Calcium (Lipitor) 10 mg PO BEDTIME [facility] Last Admin: 05/12/19 20:20 Dose: 10 mg Bisacodyl (Dulcolax) 10 mg RECTAL DAILY PRN PRN Reason: Constipation Bupropion HCl (Wellbutrin Xl) 300 mg PO DAILY [facility] Last Admin: 05/12/19 08:51 Dose: 300 mg Levofloxacin (Levaquin) 500 mg PO Q24H [facility] Levothyroxine Sodium (Synthroid) 100 mcg PO MoFr@0600 [facility] Last Admin: 05/11/19 08:02 Dose: 100 mcg Levothyroxine Sodium (Synthroid) 50 mcg PO SuTuWeThSa@0600 [facility] Last Admin: 05/13/19 05:39 Dose: 50 mcg Magnesium Hydroxide (Milk Of Magnesia) 30 ml PO DAILY PRN PRN Reason: Constipation Mirtazapine (Remeron) 7.5 mg PO BEDTIME [facility] Last Admin: 05/12/19 20:20 Dose: 7.5 mg Non-Formulary Medication (Medroxyprogesterone Acetate [Depo-Provera]) 150 mg IM ASDIRECTED [facility] Ondansetron HCl (Zofran) 4 mg IV Q4H PRN PRN Reason: Nausea/Vomiting Last Admin: 05/12/19 22:26 Dose: 4 mg Ondansetron HCl (Zofran Odt) 4 mg PO Q6H PRN PRN Reason: Nausea/Vomiting Last Admin: 05/12/19 21:23 Dose: 4 mg Pantoprazole Sodium (Protonix Iv) 40 mg IVPUSH DAILY@2100 [facility] Prednisone (Prednisone) 20 mg PO BID [facility] Last Admin: 05/12/19 20:20 Dose: 20 mg Sodium Chloride (Saline Flush) 10 ml FLUSH ASDIRECTED PRN PRN Reason: Keep Vein Open Last Admin: 05/12/19 22:30 Dose: 10 ml Sodium Chloride (Saline Flush) 10 ml FLUSH ASDIRECTED PRN PRN Reason: Keep Vein Open Tamsulosin HCl (Flomax) 0.4 mg PO BEDTIME [facility] Last Admin: 05/12/19 20:20 Dose: 0.4 mg Discontinued Medications Albuterol/Ipratropium (Duoneb 3.0-0.5 Mg/3 Ml) 3 ml NEB ONETIME ONE Stop: 05/10/19 22:38 Last Admin: 05/10/19 23:30 Dose: 3 ml Bupropion HCl (Wellbutrin Sr) 300 mg PO DAILY [facility] Furosemide (Lasix) 20 mg IVPUSH BIDDIURETIC [facility] Last Admin: 05/12/19 08:51 Dose: 20 mg Levofloxacin/Dextrose 750 mg/ (Premix) 150 mls @ 100 mls/hr IV ONETIME ONE Stop: 05/11/19 01:36 Last Admin: 05/11/19 01:27 Dose: Not Given Levofloxacin/Dextrose 750 mg/ (Premix) 150 mls @ 100 mls/hr IV Q24H [facility] Stop: 05/17/19 21:01 Levofloxacin/Dextrose 750 mg/ (Premix) 150 mls @ 100 mls/hr IV ONETIME ONE Stop: 05/11/19 02:29 Last Admin: 05/11/19 01:27 Dose: 100 mls/hr Methylprednisolone Sodium Succinate (Solu-Medrol) 125 mg IVPUSH ONETIME ONE Stop: 05/11/19 00:08 Last Admin: 05/11/19 01:27 Dose: 125 mg Methylprednisolone Sodium Succinate (Solu-Medrol) 125 mg IVPUSH Q8H [facility] Last Admin: 05/12/19 15:40 Dose: 125 mg Pantoprazole Sodium (Protonix Iv) 40 mg IVPUSH DAILY [facility] Last Admin: 05/12/19 22:15 Dose: 40 mg Perflutren Lipid Microsphere (Definity) 2.2 mg IVPUSH PREPRO ONE Stop: 05/11/19 12:44 Last Admin: 05/11/19 13:54 Dose: 2.2 mg - Exam Quality Assessment: Supplemental Oxygen General: Alert HEENT: Pupils Equal Neck: Supple Lungs: Clear to Auscultation Cardiovascular: Regular Rate Sepsis Event Note - Evaluation Sepsis Screening Result: No Definite Risk - Focused Exam Vital Signs: Vital Signs Temp Pulse Resp BP Pulse Ox 05/13/19 07:18 98.0 F 91 18 133/78 92 L 05/13/19 05:30 98.1 F 92 18 148/87 H 92 L 05/13/19 00:00 98.0 F 105 H 18 139/77 94 L Date Exam was Performed: 05/13/19 Time Exam was Performed: 08:35 - Problem List & Annotations (1) COPD exacerbation SNOMED Code(s): 785869049 Code(s): J44.1 - CHRONIC OBSTRUCTIVE PULMONARY DISEASE W (ACUTE) EXACERBATION Status: Acute Current Visit: No (2) Dementia SNOMED Code(s): 53707137 Code(s): F03.90 - UNSPECIFIED DEMENTIA WITHOUT BEHAVIORAL DISTURBANCE Status: Acute Current Visit: Yes Qualifiers: Dementia type: Alzheimer's disease - Problem List Review Problem List Initiated/Reviewed/Updated: Yes - My Orders Last 24 Hours: My Active Orders 05/12/19 16:53 Discontinue Saline Lock [Peripheral IV Discontinue] [OM.PC] Routine 05/12/19 16:57 Alum Hydroxide/Mag Hydroxide [Mag-Al Susp] 30 ml PO Q2H PRN 05/12/19 18:48 Ondansetron [Zofran ODT] 4 mg PO Q6H PRN 05/12/19 21:00 predniSONE 20 mg PO BID 05/13/19 08:30 levoFLOXacin [Levaquin] 500 mg PO Q24H - Plan Plan:: CXR shows possible minimal pneumonia. Will transition to Oral Meds. DC tomorrow
[2019-05-13] MEDS: Levofloxacin 500 MG Tab PO SCH (09:20)
[2019-05-13] MEDS: predniSONE 20 MG Tab PO SCH ×2 (09:21→20:07)
[2019-05-13] MEDS: buPROPion 150 MG Tab.ER PO SCH (09:22)
[2019-05-13] MEDS: Mirtazapine 15 MG Tab PO SCH (20:06)
[2019-05-13] MEDS: atorvaSTATin 10 MG Tab PO SCH (20:07)
[2019-05-13] MEDS: Tamsulosin 0.4 MG Cap.ER PO SCH (20:08)
[2019-05-13] MEDS: Sodium Chloride 0.9% 10 ML Syringe FLUSH PRN (20:11)
[2019-05-13] MEDS ORDERED: Pantoprazole 40 MG Vial IVPUSH SCH (21:00)
[2019-05-14] MEDS: Levothyroxine 50 MCG Tab PO SCH (05:56)
[2019-05-14] MEDS: Albuterol/Ipratropium 3.0-0.5 MG/3 ML Neb Soln NEB SCH (06:02)
--- NOTE | 2019-05-14 08:29 | PCM.DCSUM1 ---
Discharge Summary - Hospital Course Brief History: COPD and Pneumonia - Discharge Data Discharge Date: 05/14/19 Discharge Disposition: DC/Tfer to SNF 03 Condition: Good - Referral to Home Health Primary Care Physician: Arley Estevez MD - Discharge Diagnosis/Problem(s) (1) COPD exacerbation SNOMED Code(s): 303639120 ICD Code: J44.1 - CHRONIC OBSTRUCTIVE PULMONARY DISEASE W (ACUTE) EXACERBATION Status: Acute Current Visit: No (2) Dementia SNOMED Code(s): 91628815 ICD Code: F03.90 - UNSPECIFIED DEMENTIA WITHOUT BEHAVIORAL DISTURBANCE Status: Acute Current Visit: Yes Qualifiers: Dementia type: Alzheimer's disease - Discharge Plan *PRESCRIPTION DRUG MONITORING PROGRAM REVIEWED*: Not Applicable *COPY OF PRESCRIPTION DRUG MONITORING REPORT IN PATIENT MARIAH: Not Applicable Prescriptions/Med Rec: levoFLOXacin [Levaquin] 500 mg PO Q24H #7 tablet predniSONE 20 mg PO BID #10 tablet Home Medications: Home Meds Bisacodyl 10 mg RECTAL DAILY PRN 03/10/17 [History] Levothyroxine [Synthroid] 100 mcg PO MOFR@0600 03/10/17 [History] Magnesium Hydroxide [Milk of Magnesia] 30 ml PO DAILY PRN 03/10/17 [History] Ondansetron [Zofran ODT] 8 mg PO Q6H PRN #20 tab.dis 03/10/17 [Rx] Tamsulosin HCl 0.4 mg PO BEDTIME 03/10/17 [History] Triamcinolone Acetonide [Triamcinolone Acetonide 0.1% Crm] 1 applic TOP BID PRN 03/10/17 [History] medroxyPROGESTERone Acetate [Depo-Provera] 150 mg IM ASDIRECTED 03/10/17 [ History] Acetaminophen [Tylenol] 650 mg PO Q4HR PRN 05/11/19 [History] Levothyroxine [Synthroid] 50 mcg PO SUTUWETHSA@0600 05/11/19 [History] Loperamide [Imodium AD] 2 mg PO ASDIRECTED PRN 05/11/19 [History] Mirtazapine [Remeron] 7.5 mg PO BEDTIME 05/11/19 [History] atorvaSTATin [Lipitor] 10 mg PO BEDTIME 05/11/19 [History] buPROPion HCL [Bupropion Xl] 300 mg PO DAILY 05/11/19 [History] levoFLOXacin [Levaquin] 500 mg PO Q24H #7 tablet 05/14/19 [Rx] predniSONE 20 mg PO BID #10 tablet 05/14/19 [Rx] Forms: ED Department Discharge Referrals: Arley Estevez MD [Primary Care Provider] - - Discharge Summary/Plan Comment DC Time >30 min.: Yes - General Info Date of Service: 05/14/19 Subjective Update: Feeling much better today.Off O2 Functional Status: Reports: Pain Controlled - Review of Systems HEENT: Reports: No Symptoms Pulmonary: Reports: No Symptoms Cardiovascular: Reports: No Symptoms Gastrointestinal: Reports: No Symptoms - Patient Data Vitals - Most Recent: Last Vital Signs Temp 98.0 F 05/14/19 04:00 Pulse 85 05/14/19 04:00 Resp 16 05/14/19 04:00 BP 110/67 05/14/19 04:00 Pulse Ox 90 L 05/14/19 04:00 Weight - Most Recent: 120.021 kg ETHAN Results - Last 24 hrs: Microbiology 05/10/19 22:55 Aerobic Blood Culture - Preliminary Blood - Venous NO GROWTH AFTER 3 DAYS Anaerobic Blood Culture - Preliminary NO GROWTH AFTER 3 DAYS 05/10/19 23:00 Aerobic Blood Culture - Preliminary Blood - Venous - Lab Draw NO GROWTH AFTER 3 DAYS Anaerobic Blood Culture - Preliminary NO GROWTH AFTER 3 DAYS Med Orders - Current: Current Medications Acetaminophen (Tylenol) 650 mg PO Q4H PRN PRN Reason: Pain (Mild 1-3)/fever Acetaminophen (Tylenol) 650 mg PO Q4H PRN PRN Reason: Pain Al Hydroxide/Mg Hydroxide (Mag-Al Susp) 30 ml PO Q2H PRN PRN Reason: Indigestion Albuterol/Ipratropium (Duoneb 3.0-0.5 Mg/3 Ml) 3 ml NEB QIDRT [facility] Last Admin: 05/14/19 06:02 Dose: 3 ml Atorvastatin Calcium (Lipitor) 10 mg PO BEDTIME [facility] Last Admin: 05/13/19 20:07 Dose: 10 mg Bisacodyl (Dulcolax) 10 mg RECTAL DAILY PRN PRN Reason: Constipation Bupropion HCl (Wellbutrin Xl) 300 mg PO DAILY [facility] Last Admin: 05/13/19 09:22 Dose: 300 mg Levofloxacin (Levaquin) 500 mg PO Q24H [facility] Last Admin: 05/13/19 09:20 Dose: 500 mg Levothyroxine Sodium (Synthroid) 100 mcg PO MoFr@0600 [facility] Last Admin: 05/11/19 08:02 Dose: 100 mcg Levothyroxine Sodium (Synthroid) 50 mcg PO SuTuWeThSa@0600 [facility] Last Admin: 05/14/19 05:56 Dose: 50 mcg Magnesium Hydroxide (Milk Of Magnesia) 30 ml PO DAILY PRN PRN Reason: Constipation Mirtazapine (Remeron) 7.5 mg PO BEDTIME [facility] Last Admin: 05/13/19 20:06 Dose: 7.5 mg Non-Formulary Medication (Medroxyprogesterone Acetate [Depo-Provera]) 150 mg IM ASDIRECTED [facility] Ondansetron HCl (Zofran) 4 mg IV Q4H PRN PRN Reason: Nausea/Vomiting Last Admin: 05/12/19 22:26 Dose: 4 mg Ondansetron HCl (Zofran Odt) 4 mg PO Q6H PRN PRN Reason: Nausea/Vomiting Last Admin: 05/12/19 21:23 Dose: 4 mg Pantoprazole Sodium (Protonix Iv) 40 mg IVPUSH DAILY@2100 [facility] Last Admin: 05/13/19 20:09 Dose: 40 mg Prednisone (Prednisone) 20 mg PO BID [facility] Last Admin: 05/13/19 20:07 Dose: 20 mg Senna/Docusate Sodium (Senna Plus) 1 tab PO DAILY PRN PRN Reason: Constipation Last Admin: 05/13/19 14:14 Dose: 1 tab Sodium Chloride (Saline Flush) 10 ml FLUSH ASDIRECTED PRN PRN Reason: Keep Vein Open Last Admin: 05/13/19 20:11 Dose: 10 ml Sodium Chloride (Saline Flush) 10 ml FLUSH ASDIRECTED PRN PRN Reason: Keep Vein Open Tamsulosin HCl (Flomax) 0.4 mg PO BEDTIME [facility] Last Admin: 05/13/19 20:08 Dose: 0.4 mg Discontinued Medications Albuterol/Ipratropium (Duoneb 3.0-0.5 Mg/3 Ml) 3 ml NEB ONETIME ONE Stop: 05/10/19 22:38 Last Admin: 05/10/19 23:30 Dose: 3 ml Bupropion HCl (Wellbutrin Sr) 300 mg PO DAILY [facility] Furosemide (Lasix) 20 mg IVPUSH BIDDIURETIC [facility] Last Admin: 05/12/19 08:51 Dose: 20 mg Levofloxacin/Dextrose 750 mg/ (Premix) 150 mls @ 100 mls/hr IV ONETIME ONE Stop: 05/11/19 01:36 Last Admin: 05/11/19 01:27 Dose: Not Given Levofloxacin/Dextrose 750 mg/ (Premix) 150 mls @ 100 mls/hr IV Q24H [facility] Stop: 05/17/19 21:01 Levofloxacin/Dextrose 750 mg/ (Premix) 150 mls @ 100 mls/hr IV ONETIME ONE Stop: 05/11/19 02:29 Last Admin: 05/11/19 01:27 Dose: 100 mls/hr Methylprednisolone Sodium Succinate (Solu-Medrol) 125 mg IVPUSH ONETIME ONE Stop: 05/11/19 00:08 Last Admin: 05/11/19 01:27 Dose: 125 mg Methylprednisolone Sodium Succinate (Solu-Medrol) 125 mg IVPUSH Q8H [facility] Last Admin: 05/12/19 15:40 Dose: 125 mg Pantoprazole Sodium (Protonix Iv) 40 mg IVPUSH DAILY [facility] Last Admin: 05/12/19 22:15 Dose: 40 mg Perflutren Lipid Microsphere (Definity) 2.2 mg IVPUSH PREPRO ONE Stop: 05/11/19 12:44 Last Admin: 05/11/19 13:54 Dose: 2.2 mg - Exam General: Reports: Alert, Oriented Lungs: Reports: Clear to Auscultation, Crackles Cardiovascular: Reports: Regular Rate
[2019-05-14] MEDS: buPROPion 150 MG Tab.ER PO SCH (09:15)
[2019-05-14] MEDS: Levofloxacin 500 MG Tab PO SCH (09:15)
[2019-05-14] MEDS: predniSONE 20 MG Tab PO SCH (09:16)
[2019-05-14 09:44] VITALS: BP 118/72; PULSE 114
[2019-06-03] MEDS ORDERED: MEDROXYPROGESTERONE ACETATE 150 MG IM SCH (09:00)
== END 2019-05-14 10:05 | DRG 190 ==
LOC: FB.ED 22:27 → FB.MS 05-11 00:23
PROVIDERS: ADMIT Emergency Medicine; ATTEND Family Medicine
DX: J44.1 Chronic obstructive pulmonary disease with (acute) exacerbation (principal); J18.9 Pneumonia, unspecified organism; J44.0 Chronic obstructive pulmonary disease with (acute) lower respiratory infection; G30.9 Alzheimer's disease, unspecified; F32.9 Major depressive disorder, single episode, unspecified; F02.80 Dementia in other diseases classified elsewhere, unspecified severity, without behavioral disturbance, psychotic disturbance, mood disturbance, and anxiety; Z66 Do not resuscitate; E78.00 Pure hypercholesterolemia, unspecified; F31.9 Bipolar disorder, unspecified; F20.9 Schizophrenia, unspecified; E03.9 Hypothyroidism, unspecified; E66.9 Obesity, unspecified; Z79.890 Hormone replacement therapy; Z79.899 Other long term (current) drug therapy; Z68.35 Body mass index [BMI] 35.0-35.9, adult
CPT/HCPCS: 36415; 71046; 80048; 80053; 81001; 83605; 83880; 84484; 85025; 87040; 87804; 87804-59; 93005; 93010; 93306; 94150; 94640; 94760; 99284; 99285-25; A9270-GY; C9113; J1940; J1956; J2405; J2930; J7620-GY; Q9957